=== PATIENT | female | born 1995 | race African-American/Black ===

== ENCOUNTER 2016-10-24 23:19 | Emergency (ER) | payer MEDICAID ==
[~2016-10-24] VITALS: Ht 165.1 cm; Wt 68.0 kg
[2016-10-24 23:24] VITALS: BP 114/69; PULSE 72; RESP 18; TEMP 97.9; O2SAT 100
--- NOTE | 2016-10-24 23:43 | PD ---
HPI Chief Complaint: ENT Complaint Time Seen by Provider: 23:38 Travel History International Travel<30 days: No Contact w/Intl Traveler<30days: No Traveled to known affect area: No History of Present Illness HPI c/o decreased hearing, some earache to right, over last week or so, no garcia/fever/ n/v/d/cp/abdpain/ or visual disturbances PFSH Past Medical History ?: Not LMP: september 2016 Social History Alcohol Use: No Tobacco Use: No Review of Systems Except as stated in HPI: all other systems reviewed are Neg HENT: Positive: Earache Physical Exam Narrative GENERAL: SKIN: Warm and dry. HEAD: Atraumatic. Normocephalic. EYES: Pupils equal and round. No scleral icterus. No injection or drainage. ENT: No nasal bleeding or discharge. Mucous membranes pink and moist, bilateral tm cerumen impaction NECK: Trachea midline. No JVD. CARDIOVASCULAR: Regular rate and rhythm. RESPIRATORY: No accessory muscle use. Clear to auscultation. Breath sounds equal bilaterally. GASTROINTESTINAL: Abdomen soft, non-tender, nondistended. Hepatic and splenic margins not palpable. MUSCULOSKELETAL: Extremities without clubbing, cyanosis, or edema. No obvious deformities. NEUROLOGICAL: Awake and alert. No obvious cranial nerve deficits. Motor grossly within normal limits. Five out of 5 muscle strength in the arms and legs. Normal speech. PSYCHIATRIC: Appropriate mood and affect; insight and judgment normal. Data Data Last Documented VS Vital Signs Date Time Temp Pulse Resp B/P (MAP) Pulse Ox O2 Delivery O2 Flow Rate FiO2 10/24/16 23:24 97.9 72 18 114/69 (84) 100 MDM Medical Decision Making Medical Screen Exam Complete: Yes Emergency Medical Condition: Yes Medical Record Reviewed: Yes Differential Diagnosis om v oe v cerumen impaction Narrative Course patient seen and examined noted to have cerumen impaction, no e/o om or oe Diagnosis Primary Impression: Impacted cerumen Qualified Codes: H61.21 - Impacted cerumen, right ear Patient Instructions: Cerumen Impaction (ED), General Instructions Disposition: 01 DISCHARGE HOME Condition: Stable Hima Prescott MD Oct 24, 2016 23:43
== END 2016-10-24 23:47 | disposition home or self-care (01) ==
LOC: PHED 23:19
DX: H61.21 Impacted cerumen, right ear (principal)
CPT/HCPCS: 99281